=== PATIENT | female | born 1950 | race Caucasian/White ===

== ENCOUNTER 2021-09-03 17:36 | Outpatient (CLI) | payer MEDICARE, SELFPAY ==
[2021-09-03 17:52] VITALS: BP 158/81; PULSE 93; RESP 16; TEMP 37.3; O2SAT 95; BMI 40.7
[2021-09-03] MEDS: 0.9% Saline Lock 10 ML Syringe IV (18:23)
[2021-09-03 18:53] VITALS: BP 151/72; PULSE 79; RESP 16; TEMP 37.3; O2SAT 97
[2021-09-03 19:48] VITALS: BP 151/71; PULSE 88; RESP 16; TEMP 36.8; O2SAT 95
== END 2021-09-03 19:55 | disposition home or self-care (01) ==
LOC: MS3OUT 17:36 → MS3 17:37
PROVIDERS: Referring Provider Nurse Practitioner Adult Health; Visit Provider Nurse Practitioner Adult Health
DX: U07.1 COVID-19 (principal)
CPT/HCPCS: J7050; M0245; Q0245; A4216